=== PATIENT | male | born 1975 | race African-American/Black ===

== ENCOUNTER 2017-07-07 12:38 | Emergency (ER) | payer BC, SELFPAY ==
[2017-07-07] MEDS ORDERED: Ondansetron HCl/PF 4 MG/2 ML Vial ONE (12:55)
[2017-07-07 13:25] LABS: #Basophils 0.1 thou/uL (0.0-0.2); #Eosinphils 0.3 thou/uL (0.0-0.7); #Monocytes 0.5 thou/uL (0.11-0.59); #Neutrophils 2.2 thou/uL (1.40-6.50); Anisocytosis SLIGHT = 6-15 cells (100X) (0-5/hpf); Eosinophils 4 % (0-10); Hemoglobin 13.9 g/dL (14.0-18.0); Hypochromia SLIGHT = 6-15 cells (100X) (0-5/hpf); Lymphocytes 39 % (21-51); MDiff Complete? YES; Mean Corpuscular HGB CONC 31.8 g/dL (32.0-36.0); Mean Corpuscular Hemoglobin 24.9 pg (27.0-31.0); Mean Corpuscular Volume 78.3 fl (80.0-94.0); Mean Platelet Volume 7.6 fL (7.4-10.4); Monocytes 11 % (0-10); Neutrophil 46 % (42-75); PLT Morphology Comment Appears Adequate; Platelet Count 192 thou/uL (130-400); RBC Distribution Width 13.2 % (11.5-14.5); Red Blood Cell (RBC) Count 5.58 mill/uL (4.70-6.10); White Blood Cell (WBC) Count 5.1 thou/uL (4.8-10.8)
[2017-07-07 13:33] LABS: Anion Gap 13 mmol/L (10-20); BUN (Urea Nitrogen) 9 mg/dL (8.9-20.6); Calc. Creatinine Clearance 0 mL/min (70-130); Calcium 8.9 mg/dL (7.8-10.44); Carbon Dioxide 26 mmol/L (22-29); Chloride 106 mmol/L (98-107); Estimated GFR-MDRD 89; Glucose 79 mg/dL (70-105); Potassium 4.7 mmol/L (3.5-5.1); Sodium 140 mmol/L (136-145)
[2017-07-07 13:36] LABS: Acetaminophen Less than 6.0 mcg/mL (10.0-30.0); Alcohol Less than 10 mg/dL (Less than 10); Salicylate Less than 8.0 mg/dL (15.0-30.0)
[2017-07-07 13:56] LABS: Troponin I 0.011 ng/mL (< 0.028)
[2017-07-07 13:57] LABS: CKMB 8.6 ng/mL (0-6.6)
== END 2017-07-07 14:19 | disposition home or self-care (01) ==
LOC: MADERS 12:38
DX: I95.9 Hypotension, unspecified (principal); R11.2 Nausea with vomiting, unspecified; F12.90 Cannabis use, unspecified, uncomplicated; F17.210 Nicotine dependence, cigarettes, uncomplicated
CPT/HCPCS: 36415; 80048; 80307; 82553; 84484; 85025; 93005; 96374; J2405

== ENCOUNTER 2018-04-20 16:33 | Emergency (ER) | payer SELFPAY ==
[2018-04-20] MEDS ORDERED: HYDROcodone/Acetaminophen 5/325 mg Tablet ONE (16:46)
[2018-04-20] MEDS ORDERED: Ibuprofen 800 MG TAB ONE (16:46)
--- NOTE | 2018-04-20 18:00 | RAD ---
3 VIEWS LEFT HAND: Date: 04/20/18 COMPARISON: None. HISTORY: Dropped a pipe on left hand on 04/17/18, with left hand pain. FINDINGS: Three views of the left hand shows a fracture of the neck of the fifth metacarpal, which is mildly di splaced. Overlying soft tissue swelling is present. IMPRESSION: Left fifth metacarpal neck fracture. POS: [facility]
== END 2018-04-20 17:35 | disposition home or self-care (01) ==
LOC: MADERS 16:33
DX: S62.337A Displaced fracture of neck of fifth metacarpal bone, left hand, initial encounter for closed fracture (principal); F17.210 Nicotine dependence, cigarettes, uncomplicated; W20.8XXA Other cause of strike by thrown, projected or falling object, initial encounter

== ENCOUNTER 2019-04-16 15:06 | Emergency (ER) | payer SELFPAY ==
[~2019-04-16 15:06] MED LIST: Sodium Chloride Irrig Solution 250 ML BOT ONE
[2019-04-16] MEDS ORDERED: Lidocaine 1% w/Epinephrine 1:100K 20 ML VIAL ONE (15:36)
[2019-04-16] MEDS ORDERED: Bacitracin 1 PK ONE (16:05)
== END 2019-04-16 16:12 | disposition home or self-care (01) ==
LOC: MADERS 15:06
DX: N61.1 Abscess of the breast and nipple (principal); L02.213 Cutaneous abscess of chest wall; F17.210 Nicotine dependence, cigarettes, uncomplicated
CPT/HCPCS: 10060

== ENCOUNTER 2019-05-29 14:00 | Emergency (ER) | payer SELFPAY ==
[2019-05-29] MEDS ORDERED: Ibuprofen 800 MG TAB ONE (14:27)
--- NOTE | 2019-05-29 15:00 | RAD ---
EXAM: Chest PA and lateral: HISTORY: Cough COMPARISON: 07/15/2009 FINDINGS: Heart size:Within normal limits. Lungs:Clear of acute process. No confluent pneumonia, overt edema, pleural effusion, or other acute process. IMPRESSION: No significant acute intrathoracic disease.
== END 2019-05-29 15:15 | disposition home or self-care (01) ==
LOC: MADERS 14:00
DX: R50.9 Fever, unspecified (principal); R05 Cough; F17.210 Nicotine dependence, cigarettes, uncomplicated
CPT/HCPCS: 71046; 87804

== ENCOUNTER 2020-09-07 14:56 | Emergency (ER) | payer SELFPAY ==
[2020-09-07] MEDS ORDERED: Ibuprofen 800 MG TAB ONE (15:13)
[2020-09-07] MEDS ORDERED: Acetaminophen 500 MG TAB ONE (16:07)
[2020-09-07 16:15] LABS: ALT (SGPT) 218 U/L (8-55); AST (SGOT) 205 U/L (5-34); Albumin 3.9 g/dL (3.5-5.0); Alkaline Phosphatase 51 U/L (40-110); Anion Gap 14 mmol/L (10-20); BUN (Urea Nitrogen) 14 mg/dL (8.9-20.6); Bilirubin, Total 0.7 mg/dL (0.2-1.2); CK (CPK) 3286 U/L (30-200); Calc. Creatinine Clearance 0 mL/min (70-130); Calcium 9.9 mg/dL (7.8-10.44); Carbon Dioxide 27 mmol/L (22-29); Chloride 99 mmol/L (98-107); Globulin 3.3 g/dL (2.4-3.5); Glucose 93 mg/dL (70-105); Potassium 3.9 mmol/L (3.5-5.1); Protein, Total 7.2 g/dL (6.0-8.3); Sodium 136 mmol/L (136-145)
[2020-09-07 16:16] LABS: Anisocytosis SLIGHT = 6-15 cells (100X) (0-5/hpf); Band 2 % (5-11); Hemoglobin 12.7 g/dL (14.0-18.0); Hypochromia MODERATE=16-30 cells (100X) (0-5/hpf); Lymphocytes 13 % (21-51); MDiff Complete? YES; Mean Corpuscular HGB CONC 29.2 g/dL (32.0-36.0); Mean Corpuscular Hemoglobin 23.5 pg (27.0-31.0); Mean Corpuscular Volume 80.5 fL (78.0-98.0); Mean Platelet Volume 8.4 fL (7.4-10.4); Monocytes 11 % (0-10); Neutrophil 74 % (42-75); Platelet Count 185 thou/uL (130-400); Platelet Morphology Comment Appears Adequate; RBC Distribution Width 13.1 % (11.5-14.5); Red Blood Cell (RBC) Count 5.41 mill/uL (4.70-6.10)
[2020-09-07 16:47] LABS: Bilirubin Negative (Negative); Blood, Urine Negative (Negative); Clarity Clear (Clear); Glucose, Urine (Dipstick) Negative (Negative); Ketone, Urine Negative (Negative); Leukocyte Small (Negative); Nitrite Negative (Negative); Protein, Urine (Dipstick) Negative (Neg-Trace); Urobilinogen 0.2 mg/dL (Less than 2)
[2020-09-07 16:48] LABS: Bacteria/HPF Rare-Few HPF (None Seen)
[2020-09-07 16:55] LABS: Amphetamine Not Detected (NotDetected); Barbiturates Screen Not Detected (NotDetected); Benzodiazepine Screen Not Detected (NotDetected); Cocaine Metabolite Screen Not Detected (NotDetected); Medtox Control Line Valid? VALID (VALID); Methadone Not Detected (NotDetected); Methamphetamine Not Detected (NotDetected); Opiate Screen Not Detected (NotDetected); Oxycodone Screen Not Detected (NotDetected); Phencyclidine (PCP) Not Detected (NotDetected); THC/Cannabinoid Screen Not Detected (NotDetected); Tricyclic Screen Not Detected (NotDetected)
[2020-09-07] MEDS ORDERED: Sodium Chloride 0.9% 100 ML ONE (17:19)
[2020-09-07] MEDS ORDERED: cefTRIAXone\\ROCEPHIN 2 GM VIAL ONE (17:19)
[2020-09-07 19:15] LABS: ALT (SGPT) 187 U/L (8-55); AST (SGOT) 174 U/L (5-34); Albumin 3.4 g/dL (3.5-5.0); Alkaline Phosphatase 45 U/L (40-110); Anion Gap 14 mmol/L (10-20); BUN (Urea Nitrogen) 13 mg/dL (8.9-20.6); Bilirubin, Total 0.6 mg/dL (0.2-1.2); CK (CPK) 2451 U/L (30-200); Calc. Creatinine Clearance 0 mL/min (70-130); Calcium 8.5 mg/dL (7.8-10.44); Carbon Dioxide 23 mmol/L (22-29); Chloride 106 mmol/L (98-107); Globulin 2.7 g/dL (2.4-3.5); Glucose 90 mg/dL (70-105); Protein, Total 6.1 g/dL (6.0-8.3); Sodium 139 mmol/L (136-145)
== END 2020-09-07 19:27 | disposition home or self-care (01) ==
LOC: MADERS 14:56
DX: M62.82 Rhabdomyolysis (principal); E86.0 Dehydration; N39.0 Urinary tract infection, site not specified; Z87.19 Personal history of other diseases of the digestive system; F17.210 Nicotine dependence, cigarettes, uncomplicated
CPT/HCPCS: 36415; 71045; 80053; 80306; 81003; 81015; 82550; 85025; 87040; 87081; 87430; 87804; 96365; 99406; J0696; J3490

== ENCOUNTER 2020-09-11 07:53 | Emergency (ER) | payer SELFPAY ==
[~2020-09-11 07:53] MED LIST changes: +Sodium Chloride 0.9% 1,000 ML BAG ONE; -Sodium Chloride Irrig Solution 250 ML BOT ONE
[2020-09-11 08:22] LABS: Bilirubin Negative (Negative); Blood, Urine Negative (Negative); Clarity Clear (Clear); Glucose, Urine (Dipstick) Negative (Negative); Ketone, Urine Negative (Negative); Leukocyte Trace (Negative); Nitrite Negative (Negative); Protein, Urine (Dipstick) Negative (Neg-Trace); Specific Gravity, Urine 1.015 (1.005-1.030); Urobilinogen 0.2 mg/dL (Less than 2); pH, Urine 6.5 (5.0-9.0)
[2020-09-11 08:28] LABS: Bacteria/HPF Rare-Few HPF (None Seen); RBC/HPF 0-3 HPF (0-3); Squamous Epithelial 0-3 HPF (0-3); WBC/HPF 0-3 HPF (0-3)
[2020-09-11 08:44] LABS: Amphetamine Not Detected (NotDetected); Barbiturates Screen Not Detected (NotDetected); Benzodiazepine Screen Not Detected (NotDetected); Cocaine Metabolite Screen Detected (NotDetected); Medtox Control Line Valid? VALID (VALID); Methadone Not Detected (NotDetected); Methamphetamine Not Detected (NotDetected); Opiate Screen Not Detected (NotDetected); Oxycodone Screen Not Detected (NotDetected); Phencyclidine (PCP) Not Detected (NotDetected); THC/Cannabinoid Screen Not Detected (NotDetected); Tricyclic Screen Not Detected (NotDetected)
[2020-09-11 09:25] LABS: ALT (SGPT) 197 U/L (8-55); AST (SGOT) 136 U/L (5-34); Albumin 3.2 g/dL (3.5-5.0); Alkaline Phosphatase 49 U/L (40-110); Anion Gap 11 mmol/L (10-20); BUN (Urea Nitrogen) 7 mg/dL (8.9-20.6); Bilirubin, Total 0.2 mg/dL (0.2-1.2); CK (CPK) 516 U/L (30-200); Calc. Creatinine Clearance 0 mL/min (70-130); Calcium 8.7 mg/dL (7.8-10.44); Carbon Dioxide 31 mmol/L (22-29); Chloride 103 mmol/L (98-107); Globulin 2.9 g/dL (2.4-3.5); Glucose 116 mg/dL (70-105); Lipase 24 U/L (8-78); Protein, Total 6.1 g/dL (6.0-8.3); Sodium 141 mmol/L (136-145)
[2020-09-11 09:36] LABS: Band 4 % (5-11); Hemoglobin 12.1 g/dL (14.0-18.0); Lymphocytes 54 % (21-51); MDiff Complete? YES; Mean Corpuscular HGB CONC 29.5 g/dL (32.0-36.0); Mean Corpuscular Volume 81.3 fL (78.0-98.0); Mean Platelet Volume 9.5 fL (7.4-10.4); Neutrophil 23 % (42-75); Platelet Count 117 thou/uL (130-400); RBC Distribution Width 13.5 % (11.5-14.5); Red Blood Cell (RBC) Count 5.05 mill/uL (4.70-6.10); White Blood Cell (WBC) Count 2.9 thou/uL (4.8-10.8)
[2020-09-11 09:37] LABS: Anisocytosis SLIGHT = 6-15 cells (100X) (0-5/hpf); Eosinophils 2 % (0-10); Monocytes 17 % (0-10); Poikilocytosis SLIGHT = 6-15 cells (100X) (0-5/hpf); Target Cells SLIGHT = 2-5 cells (100X) (0-1/hpf)
[2020-09-11 09:38] LABS: Platelet Morphology Comment Appears Decreased
== END 2020-09-11 10:55 | disposition home or self-care (01) ==
LOC: MADERS 07:53
DX: M62.82 Rhabdomyolysis (principal); F14.10 Cocaine abuse, uncomplicated; M54.5 Low back pain; F17.210 Nicotine dependence, cigarettes, uncomplicated; Z87.19 Personal history of other diseases of the digestive system
CPT/HCPCS: 80053; 80306; 81003; 81015; 82550; 83605; 83690; 85025; 99283; J7050

== ENCOUNTER 2021-08-15 18:34 | Emergency (ER) | payer SELFPAY | END 2021-08-15 19:07 | disposition left against medical advice (07) | LOC: MADERS 18:34 | DX: M54.50 Low back pain, unspecified (principal); F17.210 Nicotine dependence, cigarettes, uncomplicated | CPT/HCPCS: 99283 ==